=== PATIENT | female | born 1995 | race African-American/Black ===

== ENCOUNTER 2017-05-09 07:24 | Emergency (ER) | payer OTHER ==
[~2017-05-09] VITALS: Ht 160 cm; Wt 117.9 kg
[2017-05-09] MEDS ORDERED: MAKENA250 MG/1 M IM (07:42)
[2017-05-09] MEDS ORDERED: TAMIFLU75 MG PO (08:52)
[2017-05-09] MEDS ORDERED: MUCINEX600 MG PO (09:01)
[2017-05-09] MEDS ORDERED: TYLENOL325 MG PO (09:01)
== END 2017-05-09 09:29 | disposition home or self-care (01) ==
LOC: ER 07:24
DX: O26.892 Other specified pregnancy related conditions, second trimester (principal); J11.1 Influenza due to unidentified influenza virus with other respiratory manifestations; F17.210 Nicotine dependence, cigarettes, uncomplicated; Z3A.22 22 weeks gestation of pregnancy

== ENCOUNTER 2017-07-06 21:59 | Emergency (ER) | payer OTHER ==
[~2017-07-06] VITALS: Ht 160 cm; Wt 122.9 kg
[~2017-07-06 21:59] MED LIST: MAKENA250 MG/1 M IM; MUCINEX600 MG PO; TAMIFLU75 MG PO; TYLENOL325 MG PO
== END 2017-07-06 23:47 | disposition home or self-care (01) ==
LOC: ER 21:59
DX: O23.593 Infection of other part of genital tract in pregnancy, third trimester (principal); O99.513 Diseases of the respiratory system complicating pregnancy, third trimester; Z3A.30 30 weeks gestation of pregnancy; Z87.891 Personal history of nicotine dependence